=== PATIENT | female | born 1970 | race Two or more races ===

== ENCOUNTER 2017-08-23 08:56 | Emergency (ER) | payer BC, OTHER ==
[~2017-08-23] VITALS: Ht 154.9 cm; Wt 63.5 kg
[2017-08-23 09:00] VITALS: BP 147/77
[2017-08-23] MEDS ORDERED: ACETAMINOPHEN 325 MG TAB PO ONE (09:30)
== END 2017-08-23 10:42 | disposition home or self-care (01) ==
LOC: ER 08:56
DX: S00.03XA Contusion of scalp, initial encounter (principal); I10 Essential (primary) hypertension; Y08.89XA Assault by other specified means, initial encounter; Y93.89 Activity, other specified; Y99.8 Other external cause status; Y92.89 Other specified places as the place of occurrence of the external cause
CPT/HCPCS: 70450

== ENCOUNTER 2017-08-27 20:20 | Emergency (ER) | payer BC ==
[~2017-08-27] VITALS: Ht 154.9 cm; Wt 77.1 kg
[2017-08-27 20:32] VITALS: BP 160/90
[2017-08-27 22:22] LABS: Basophils # (auto) 0 uL; Basophils % (auto) 0.7 % (0.0-2.0); Eosinophils # (auto) 0.4 uL; Hemoglobin 10.9 g/dL (12.2-16.2); Lymphocytes # (auto) 2.4 uL; Mean Corpuscular Volume 80.3 fL (80.0-100.0); Monocytes # (auto) 0.5 uL; Neutrophils # (auto) 3.6 uL; Nucleated Red Blood Cells % 0.1 %
[2017-08-27 22:25] LABS: Eosinophils % (auto) 5.8 % (0.0-7.0); Hematocrit 34.3 % (36.0-46.0); Lymphocytes % (auto) 34.4 % (10.0-50.0); Mean Corpuscular Hemoglobin 25.5 pg (28.0-32.0); Mean Corpuscular Hgb Conc. 31.8 g/dL (32.0-36.0); Monocytes % (auto) 6.8 % (0.0-12.0); Neutrophils % (auto) 52.3 % (37.0-80.0); Platelet Count (auto) 355 10^3/uL (140-450); Red Blood Cells 4.27 10^6/uL (4.0-5.20); Red Cell Distribution Width 16.3 % (11.8-14.3); White Blood Cell 6.9 10^3/uL (4.4-10.8)
[2017-08-27 22:37] LABS: Alanine Aminotransferase 12 U/L (13-56); Albumin 3.5 g/dL (3.4-5.0); Alkaline Phosphatase 72 U/L (45-117); Anion Gap 6 (5-15); Aspartate Aminotransferase 14 U/L (15-37); Bilirubin, Total 0.2 mg/dL (0.2-1.0); Blood Urea Nitrogen 15 mg/dL (7-18); Calcium 8.2 mg/dL (8.5-10.1); Carbon Dioxide 26 mmol/L (21-32); Chloride 108 mmol/L (98-107); GFR African American 106 mL/min; GFR Non-African American 87 mL/min; Glucose 89 mg/dL (74-106); Potassium 4.5 mmol/L (3.5-5.1); Sodium 140 mmol/L (136-145); Total Protein 7.9 g/dL (6.4-8.2)
== END 2017-08-28 00:37 | disposition left against medical advice (07) ==
LOC: ER 20:20
DX: R51 Headache (principal)
CPT/HCPCS: 36415; 80053; 84484; 85025